=== PATIENT | male | born 1950 | race Asian ===

== ENCOUNTER 2021-04-21 02:44 | Emergency (ER) | payer OTHER ==
[~2021-04-21] VITALS: Ht 188 cm; Wt 59.0 kg
[2021-04-21 03:17] LABS: PLATELET COUNT 218 K/uL (142-355)
[2021-04-21 03:38] LABS: POTASSIUM 3.7 mmol/L (3.6-5.2)
[2021-04-21 04:41] VITALS: BP 135/66; TEMP 98
[2021-04-21] MEDS ORDERED: AMLODIPINE BESYLATE PO (05:17)
[2021-04-21] MEDS ORDERED: ASPIR-8181 MG PO (05:18)
[2021-04-21] MEDS ORDERED: EQL IRON SUPPL325 M1 PO (05:19)
[2021-04-21] MEDS ORDERED: LIPITOR20 MG PO (05:20)
[2021-04-21] MEDS ORDERED: JUVE1 PO (05:20)
[2021-04-21] MEDS ORDERED: VITAMIN B-121000 MC2 PO (05:21)
[2021-04-21] MEDS ORDERED: THIA100T8 PO (05:21)
[2021-04-21] MEDS ORDERED: MULT VITAMI1 PO (05:21)
== END 2021-04-21 04:41 | disposition still patient (30) ==
LOC: ED 02:44
PROVIDERS: Emergency Medicine Emergency Medical Services
DX: Z04.6 Encounter for general psychiatric examination, requested by authority (principal); F91.8 Other conduct disorders; I10 Essential (primary) hypertension
CPT/HCPCS: 36415; 80053; 81000; 85027; 87635; 93005; 99283; U0003